=== PATIENT | male | born 1995 | race Caucasian/White ===

== ENCOUNTER 2024-08-13 12:36 | Emergency (ER) | payer BC, SELFPAY ==
[2024-08-13 12:39] VITALS: BP 152/87
[2024-08-13 14:35] VITALS: BMI 25.8
--- NOTE | 2024-08-13 14:38 | EDRN ---
Pt states his own dog, shots up to date, bit him when he was trying to get him in the tub to bathe him on his R hand, one bite to mid dorsal aspect of hand and other at base of thumb area. pt states pain is traveling up his R arm though. Last
tetanus reported at 04/2019.
--- NOTE | 2024-08-13 15:14 | ED.SKININJ ---
HPI-Injury
General
Chief Complaint: Bite
Source: patient
Exam Limitations: none
Time Seen by Provider: 08/13/24 14:55
Nursing documentation reviewed up to this point in time: agreed with
History of Present Illness-Injury
Initial Injury comments:
pt is a 29 y/o M with no chronic medical problems
was mary to get his dog into the bath to wash him and he put his hands on the dog's backside and the dog reached and lunged and bit pt's R hand
very out of character for the dog who is home pet, 1 year old, utd on vaccines
pt says immediately he had pain and felt like his hand was spasm for about 30 minutes
the patient says the pain shot up his R arm to elbow
he now feels better after taking motrin, can move hand normally
normal sensation
nor mal strength
no bleeding from wound
tetanus 2018
Past History
Past History
ED Past Medical History: None
ED Past Surgical History: Orthopedic
Social History
Tobacco: Non-smoker
Alcohol: None
Review of Systems
Review of Systems
Allergies reviewed?: Yes
All Other Systems: Not applicable
Phy Exam
Physical Exam
Physical Exam:
GENERAL: Alert , in no apparent distress
CARDIAC: Regular rate and rhythm .2+ radial pulse cap refill< 2 sec fingers R hand
LUNGS: Clear breath sounds bilaterally, no acute respiratory distress, no wheezes/rales/rhonchi
ABDOMEN: Soft, without focal tenderness, no r/g, no cvat, normal bowel sounds
NEUROLOGICAL: Alert and oriented, no focal neuro deficits, normal sensation and strength in hand and fingers
SKIN: Warm and dry, 1 cm linear laceration mid 3rd metacarpal region dorsally R hand and small tiny puncture L thumb thenar eminence
bleeding controlled
MUSCULOSKELETAL: small STS dorsal mid hand with laceration
full ROm of fingers
nv intact
PSYCH: Normal and appropriate interaction.
Course
Orders/Labs/Results
Orders:
Orders
08/13/24 15:14
Amoxicillin 250 mg/Clav 125 mg [Augmentin 250 mg/125 mg] 1 tablet PO NOW STA
Vital Signs
Initial and Last Documented VS:
Initial Vital Signs
Temp Pulse Resp BP Pulse Ox
36.5 C 96 20 152/87 98
08/13/24 12:39 08/13/24 12:39 08/13/24 12:39 08/13/24 12:39 08/13/24 12:39
Last Documented Vital Signs
Temp Pulse Resp BP Pulse Ox
36.5 C 93 16 127/71 96
08/13/24 12:39 08/13/24 15:40 08/13/24 15:40 08/13/24 15:40 08/13/24 15:40
MDM/Problems Addressed
Differential Diagnosis Includes:
bite, laceration, tendon injury
MDM/Problems Addressed:
29 y/o M
bit by own dog when he went to pick him up from behind
vaccinated
teatnus UTD
has laceratino dorsum R hand
pain shot into forearm initially
now better
normal rom, normalsensation
offered xray but pt declined
irrigated well with wound cleanser and NSS
nonstick dressing applied
wound left open
augmentin
*Critical Care Note
Total Time (30-74mins, 75-104mins- exclusive of procedures): Not Applicable
ED Attending Note
-
Portions of this chart may have been created with voice recognition software.� Occasional wrong word or��sound alike� substitutions may have occurred due to the inherent limitations of voice recognition software.
Discharge Plan
Departure
Patient Disposition: Home (Routine Discharge)
Date of Disposition: 08/13/24
Time of Disposition: 15:21
Patient with high blood pressure during this ER visit?: Yes
Condition: Fair
Discharge Problem:
Dog bite of right hand
Instructions: Animal Bites (DC)
Prescriptions:
New
amoxicillin-pot clavulanate 875-125 mg tablet
1 tab PO BID Qty: 14 0RF
Referrals:
NONE,* [Family Provider] -
Activity Restrictions/Additional Instructions:
Keep the wound clean and dry. Change dressing daily after washing with soap and water
Watch for signs of infection like surrounding redness, drainage, worsening pain, fever and return to the ER
otherwise follow upw ith your doctor as needed
augmentin twice a day for 7 days top revent infection
motrin every 8 hours as needed for pain/swelling/inflammation
ice off and on
Interventions
Interventions:
*Risk Screen - Suicide Last Done: 08/13/24 14:35
*General Assessment Last Done: 08/13/24 14:35
*Neglect/Abuse Screening Last Done: 08/13/24 14:35
*ED- Fall Risk Assessment Last Done: 08/13/24 14:35
*ED COVID-19 Vaccine History Last Done: 08/13/24 14:35
*Nursing Disposition Last Done: 08/13/24 15:48
ED-Skin Assessment Last Done: 08/13/24 14:35
Discharge Date and Time
Discharge Date/Time: 08/13/24 15:48
Print Language: DANISH
--- NOTE | 2024-08-13 15:20 | EDRN ---
Kamryn MUSTAFA in to see pt, irrigate bites, and dressed the area.
[2024-08-13 15:40] VITALS: BP 127/71
== END 2024-08-13 15:48 | disposition home or self-care (01) ==
LOC: EMR 12:36
PROVIDERS: EMERGENCY PHYSICIAN Student in an Organized Health Care Education/Training Program
DX: S61.451A Open bite of right hand, initial encounter (principal); W54.0XXA Bitten by dog, initial encounter
CPT/HCPCS: 99283